=== PATIENT | female | born 1975 | race Caucasian/White ===

== ENCOUNTER 2017-03-18 08:23 | Day surgery (SDC) | payer OTHER ==
[~2017-03-18] VITALS: Ht 165.1 cm; Wt 95.2 kg
--- OUTSIDE RECORDS SUMMARY | 2017-03-18 08:27 | XMS REPORT | Referral Summary ---
Author Organization Unknown Address Unknown Phone Unavailable Care Team Providers Care Economic Specialist Name Role Phone Kamlesh Andrade Primary Care Physician [phone] Encounter [facility] [id number] Date(s): 01/18/15 - 01/18/15 [address] [facility] [address] [place] [id number] Discharge Diagnosis: Acute bronchitis Discharge Diagnosis: Influenza Discharge Disposition: Home or Self Care Attending Physician: Curly Andrade MD Admitting Physician: Curly Andrade MD Vital Signs Most recent to 1 oldest [Reference Range]: Temperature Tympanic 38.4 degC [36.6-38.1 degC] *HI* (01/18/15 2:52 PM) Peripheral Pulse 76 bpm Rate [60-100 bpm] (01/18/15 2:52 PM) Blood Pressure 116/80 mmHg [90-140/60-90 mmHg] (01/18/15 2:52 PM) Problem List Condition Effective Dates Status Health Status Informant Acute Active bronchitis(Confirmed ) Influenza(Confirmed) Active Allergies, Adverse Reactions, Alerts No Known Medication Allergies Medications Tamiflu 75 mg oral capsule 1 caps, Oral, BID, X 5 days, # 10 caps, 0 Refill(s), Pharmacy: [facility] #[id number], 1 caps Oral BID,x5 days Start Date: 01/18/15 Stop Date: 01/23/15 Status: Ordered Results No data available for this section Immunizations No data available for this section Procedures No data available for this section Social History Social History Type Response Smoking Status Never smoker Assessment and Plan Extracted from: Title: Ambulatory Patient Education Author: Curly Andrade MD Date: 01/18 Family Medicine Influenza, Adult Influenza ("the flu") is a viral infection of the respiratory tract. It occurs more often in winter months because people spend more time in close contact with one another. Influenza can make you feel very sick. Influenza easily spreads from person to person (contagious ). CAUSES Influenza is caused by a virus that infects the respiratory tract. You can catch the virus by breathing in droplets from an infected person's cough or sneeze. You can also catch the virus by touching something that was recently contaminated with the virus and then touching your mouth, nose, or eyes. SYMPTOMS Symptoms typically last 4 to 10 days and may include: Fever. Chills. Headache, body aches, and muscle aches. Sore throat. Chest discomfort and cough. Poor appetite. Weakness or feeling tired. Dizziness. Nausea or vomiting. DIAGNOSIS Diagnosis of influenza is often made based on your history and a physical exam. A nose or throat swab test can be done to confirm the diagnosis. RISKS AND COMPLICATIONS You may be at risk for a more severe case of influenza if you smoke cigarettes, have diabetes, have chronic heart disease (such as heart failure) or lung disease (such as asthma), or if you have a weakened immune system. Elderly people and women are also at risk for more serious infections. The most common complication of influenza is a lung infection (pneumonia ). Sometimes, this complication can require emergency medical care and may be life- threatening. PREVENTION An annual influenza vaccination (flu shot) is the best way to avoid getting influenza. An annual flu shot is now routinely recommended for all adults in the [place] TREATMENT In mild cases, influenza goes away on its own. Treatment is directed at relieving symptoms. For more severe cases, your caregiver may prescribe antiviral medicines to shorten the sickness. Antibiotic medicines are not effective, because the infection is caused by a virus, not by bacteria. HOME CARE INSTRUCTIONS Only take [id number] or prescription medicines for pain, discomfort, or fever as directed by your caregiver. Use a cool mist humidifier to make breathing easier. Get plenty of rest until your temperature returns to normal. This usually takes 3 to 4 days. Drink enough fluids to keep your urine clear or pale yellow. Cover your mouth and nose when coughing or sneezing, and wash your hands well to avoid spreading the virus. Stay home from work or school until your fever has been gone for at least 1 full day. SEEK MEDICAL CARE IF: You have chest pain or a deep cough that worsens or produces more mucus. You have nausea, vomiting, or diarrhea. SEEK IMMEDIATE MEDICAL CARE IF: You have difficulty breathing, shortness of breath, or your skin or nails turn bluish. You have severe neck pain or stiffness. You have a severe headache, facial pain, or earache. You have a worsening or recurring fever. You have nausea or vomiting that cannot be controlled. MAKE SURE YOU: Understand these instructions. Will watch your condition. Will get help right away if you are not doing well or get worse. Document Released: 10/18/2001 Document Revised: 04/21/2013 Document Reviewed: [facility] Patient Information 2014 [employer] [facility]. No follow up information was provided. Extracted from: Title: Influenza Author: Curly Andrade MD Date: 01/18/15 Impression and Plan Diagnosis Influenza (ICD9 487.1, Discharge, Medical). Acute bronchitis (ICD9 466.0, Discharge, Medical). Plan: Rest at home this week. Take your tamiflu twice a day for 5 days. Followup as needed. . Orders Orders (Selected) Outpatient Orders Ordered Office Visit Level 4 Est 82295: Prescriptions Prescribed Tamiflu 75 mg oral capsule: 1 caps, Oral, BID, 10 caps. Dx/Order Association Plan: Diagnosis: Acute bronchitis Comment: Ordered: Office Visit Level 4 Est 21399; 01/18/15 15:26:00 CDT, Influenza | Acute bronchitis Diagnosis: Influenza Comment: Ordered: Office Visit Level 4 Est 01541; 01/18/15 15:26:00 CDT, Influenza | Acute bronchitis Additional Orders: Comment: Ordered: Tamiflu 75 mg oral capsule,1 caps, Oral, BID, X 5 days, # 10 caps, 0 Refill(s), Pharmacy: [facility] #[id number], 1 caps Oral BID,x5 days End of Orders .
--- NOTE | 2017-03-18 08:32 | ERPDOC ---
Departure Disposition Decision Date: March 18, 2017 Disposition Decision Time: 08:42 Disposition: 02 TO [facility] Impression Impression Impression: Primary Impression: Food impaction of esophagus Encounter type: initial encounter Qualified Codes: T18.128A - Food in esophagus causing other injury, initial encounter Additional Impression: Esophageal stricture Severity: Moderate Condition: Stable Seen By: Physician only Problems/Meds/Labs Reviewed?: Yes Medications reviewed and manag: Yes Follow up care ordered?: Yes Mental Status: Alert, Oriented HPI - General Medical General Stated Complaint: THROAT CLOSING OFF/CHICKEN LODGED Time Seen by Provider: 08:32 Source: patient Exam Limitations: no limitations HPI - General Medical Initial Comments Patient is a 41-year-old female, does have a history of 6 esophageal strictures starting at the age of 11 diagnosed in her 20s she's had 3 dilatations in the past with biopsies, last one was greater than 6 years ago. Patient presents the ER for evaluation of food caught in throat. Patient was eating some chicken last night believes the food got stuck at that time. Patient has been uncomfortable all night, does feel that it partially passed about 2:30 this morning, however continuing to have problems with secretions and difficulty swallowing even water. Patient did call her primary medical doctor's office recommended she come to the ER for evaluation. Allergies: Coded Allergies: No Known Allergies (Unverified , 03/18/17) Past History Past Medical History Respiratory: asthma Social History Smoking Status: Current every day smoker Substance Use Type: does not use Alcohol Intake: none Review of Systems Constitutional Constitutional: DENIES: chills, dizziness, fever, weakness Eyes Vision: DENIES: double vision, loss of visual hewitt ENMT Sinuses: DENIES: congestion, rhinorrhea Mouth/Throat: painful swallowing, DENIES: scratchy throat, sore throat Cardiovascular Cardiac: DENIES: chest pain, dyspnea on exertion Pulmonary Respiratory: DENIES: cough, dyspnea, sputum, tachypnea GI Upper Abdomen: dysphagia, DENIES: nausea, pain, vomiting General: DENIES: frequency, urgency Musculoskeletal General: DENIES: cramps, pain, weakness Integumentary Skin: DENIES: color change, itching, rash Neurological General: DENIES: headache, numbness, syncope, weakness Endocrine Endocrine: DENIES: heat/cold intolerance Hematologic/Lymphatic Hematologic/Lymphatic: DENIES: anemia Physical Exam General General Nourishment: well nourished, well developed General Body Habitus: well groomed Vitals and Pain First Documented Vital Signs Date Time Temp Pulse Resp B/P Pulse Ox O2 Delivery O2 Flow Rate FiO2 03/18/17 08:25 98.0 70 14 155/80 97 Room Air Weight: Kilograms: Height (feet): Height (inches): Triage Pain Scale: RN VS reviewed by Provider: Yes Eyes (brief) Eyes Brief: found: EOMI ENMT (brief) ENMT Brief: FOUND: mucosa moist, normal dentition, NOT FOUND: nasal erythema, pharnyx erythema, tonsillar deviation Neck (brief) Neck: NOT FOUND: adenopathy, spasm, tenderness Respiratory (brief) Respiratory: FOUND: clear all hewitt, equal bilaterally, NOT FOUND: rales, wheezes Cardiovascular (brief) Cardiac: FOUND: regular rate, regular rhythm Capillary Refill: <2 sec Abdomen (brief) Abdominal Brief: FOUND: bowel normo active x4, soft, NOT FOUND: distended, tender Lymphatic (brief) Lymphatic Brief: NOT FOUND: adenopathy Musculoskeletal (brief) Musculoskeletal Brief: NOT FOUND: spasm, tenderness Integumentary (brief) Integumentary Brief: FOUND: dry, pink, rash (patient has a peeling sunburn on her upper chest), warm Neurologic (brief) Neurological Brief: FOUND: CN w/o gross def to obs, motor-no gross deficits, sensory-no gross deficits Psychiatric (brief) Psychiatric Brief: FOUND: alert, oriented Differential Diagnoses Considering: Other (food impaction, esophageal stricture) Progress Results/Orders Orders Procedure Category Date Status Time Iv Lock (Ed Only) EDM 03/18/17 Transmitted 08:37 LAB 03/18/17 Logged Qualitative, Urine 08:41 Place In Facility: ED ADM 03/18/17 Transmitted 08:43 Progress Progress Discuss case with Dr. Noel, given patient's past medical history and signs and symptoms will admit to surgical outpatient for EGD BERYL PARHAM MD March 18, 2017 08:32
--- NOTE | 2017-03-18 08:32 | NUR ---
PROVIDER DR. PARHAM IN ROOM WITH PT.
--- NOTE | 2017-03-18 08:40 | NUR ---
WATER RESULTS PT ATTEMPTED TO SIP WATER, PT STATES IT IS "STUCK" IN UPPER CHEST AND NOW CAUSING PAIN. PT FORCES HERSELF TO VOMIT TO RELIEVE PRESSURE FROM THE WATER. PROVIDER NOTIFIED.
[2017-03-18] MEDS ORDERED: advair diskus (09:07)
[2017-03-18] MEDS ORDERED: proair (09:07)
--- NOTE | 2017-03-18 09:40 | NUR ---
PROVIDER/GUILLERMO LI IN WITH PT AT THIS TIME.
--- NOTE | 2017-03-18 09:45 | NUR ---
REPORT REPORT CALLED TO [place] RAIN.
--- NOTE | 2017-03-18 10:05 | NUR ---
DEPART ED/SURGICAL SURGICAL STAFF TOOK PT OUT OF THE ED PER WHEELCHAIR AT THIS TIME.
[2017-03-18 10:20] VITALS: BP 137/88; PULSE 72; RESP 18; TEMP 98.2; O2SAT 97
[2017-03-18 10:30] VITALS: Ht 165.1 cm; Wt 95.2 kg
[2017-03-18] MEDS ORDERED: LR 1,000 ML IV PRN (11:02)
--- NOTE | 2017-03-18 11:37 | HPF ---
FINDINGS Mrs. Colunga is a 41-year-old female whom I was asked to see through the emergency room today as a result of a suspected esophageal foreign body. Upon questioning Mrs. Colunga, she informs me that she has had problems with "swallowing" since the age of 11. Patient states that her first dilatation was performed at the age of 16. 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 Patient states she has underwent perhaps five EGD and dilatations from the age of 16 up to her current age. Patient states that recently she has been having more problems with swallowing and that things have been "getting stuck more frequently". Patient states that she has always however been able to drink water and "push it on through." Patient states that at about 8:30 last night she had eaten some chicken and knew that it had become "stuck". Patient states that she did try to drink some additional fluid to help "push it on through". This was to no avail. She has been having difficulty in swallowing her own saliva. The patient stated that she knew things were "stuck again" and she therefore presented to the emergency room for further evaluation this morning. The patient did not appear to be in acute distress. PAST MEDICAL HISTORY Chronic Illness/System disorders: 1. History for asthma. PAST SURGICAL HISTORY C-sections. MEDICATIONS None. ALLERGIES NO KNOWN DRUG ALLERGIES. SOCIAL HISTORY Patient denies tobacco use. She does drink alcohol socially. FAMILY HISTORY Both her mother and father are alive and overall doing well. States that her dad has a history for high cholesterol and atherosclerotic coronary artery disease. REVIEW OF SYSTEMS Review of systems undertaken with the patient is essentially negative except as stated above in Findings section as well as a prior history for asthma from a constitutional, HEENT, cardiac, respiratory, GI, , musculoskeletal, hematology/oncology, endocrine, psychiatric. PHYSICAL EXAMINATION GENERAL: Mrs. Colunga is a 41-year-old female who as stated above did not appear to be in acute distress. VITALS: Temperature 98.0. Pulse 70. Respirations 14. Blood pressure 150/80. SaO2 97% on room air. HEENT: Normocephalic. Pupils are equally round and react to light and accommodation. CHEST: Clear to auscultation bilaterally. HEART: Regular rate and rhythm. Normal S1, S2, without gallops, murmurs or clicks. ABDOMEN: Palpation of the abdomen reveals it to be soft and nontender. I do not appreciate any evidence for hepatosplenomegaly nor abnormal masses. EXTREMITIES: Without clubbing, cyanosis, or edema. NEURO: Cranial nerves II-XII grossly intact. Patient without focal, motor, or sensory deficits. LABORATORY/RADIOGRAPHIC EVALUATION The patient had a urine test that was negative. ASSESSMENT 41-year-old female with probable esophageal foreign body. Patient with personal history for esophageal strictures. PLAN Esophagogastroduodenoscopy with removal of foreign body with probable dilatation. I informed the patient that I would recommend that she undergo an EGD with removal of this suspected foreign body as well as a possible dilatation. I did discuss with the patient in detail what this would entail and its associated risks which included, but was not exclusive of, bleeding and/or perforation requiring surgery. Patient understood and wished to proceed as stated above. MTDD
[2017-03-18] MEDS ORDERED: LIDOCAINE VISCOUS 2% Oral Soln 15ml UD ONE (12:27)
[2017-03-18] MEDS ORDERED: SIMETHICONE 67 MG/ML ORAL DROPS ONE ×2 (12:27→12:48)
[2017-03-18] MEDS ORDERED: BENZOCAINE 20% Top. Anesth. SPRAY UD ONE (12:27)
--- NOTE | 2017-03-18 12:30 | ANESPREOP ---
Anesthesia Record Date and Time DATE: 03/18/17 TIME: 12:20 Proposed Surgical Procedure Allergies: Coded Allergies: No Known Allergies (Unverified , 03/18/17) Ht/Wt/BMI Height: 5 ' 5.00 " Weight: 95.200 kg BMI: 34.9 kg/m2 Vital Signs Date Time Temp Pulse Resp B/P Pulse Ox O2 Delivery O2 Flow Rate FiO2 03/18/17 10:20 98.2 72 18 137/88 97 Room Air Medications Inpatient Medications Current Medications Medications (Trade) Dose Ordered Sig/Clementina Start Time Stop Time Status Last Admin Dose Admin Lactated Ringer's (Lactated Ringers) 1,000 ml @ 0 mls/hr Q0M PRN 03/18/17 11:02 03/18/17 11:04 0 MLS/HR [advair diskus] , (Reported) Last Taken: on Unknown Date & Time [proair] , (Reported) Last Taken: on Unknown Date & Time Currently on Beta Torsten: No Medical/Surgical History Anesthesia PMH: Reports: Asthma (has not used meds in several years), Obesity, Denies: Anesthesia Reactions (NO AIRWAY ISSUES), , Sleep Apnea Smoking Status: Never smoker Has pt. smoked today?: No Use Chewing Tobacco?: No Second Hand Exposure: No Substance Use Type: does not use Substance last used: unknown Alcohol Intake: rarely Last Drink: unknown HX of Last Menstrual Period: 2 WEEKS AGO Past Surgical History Orthopedic Surgeries: Abdominal Surgeries: Genitourinary Surgeries: Cardiac Surgeries: Endocrine Surgeries: Reproductive Surgeries: Yes - X2 Neurological Surgeries: Ear Surgeries: Nose Surgeries: Throat Surgeries: Yes - esphageal stricture repair 3 or 4 times Other Surgeries: Yes - COLONOSCOPY Anesthesia Adverse Reactions: FOUND none Family Hx of Anesthesia Advers: none Hx of Motion Sickness: No Pertinent Findings Test 03/18/17 08:51 Urine Test Negative (NEGATIVE) EKG Rhythm: Sinus Rhythm Physical Exam Respiratory: Bilat breath sounds equal, Lungs clear Cardiovascular: FOUND Regular rate, rhythm, FOUND No murmur Airway Assessment Mallampati Score: II TMD: 2 Fingerbreadths Neck Extension: Fair Overall Assessment: No Airway Concerns ASA: 2 Plan Anesthesia Plan: MAC Discussion Discussed risks/options/alternatives of anesthesia and questions answered. Patient consents. Nursing pain assessment noted. Present: Parent Attestation Statement Prior to the delivery of any anesthetic medication, I examined the patient, developed the plan, obtained the patient's consent and discussed the risk and benefits of the procedure with the patient/guardian. CONCEPCION SANDERSON CRNA March 18, 2017 12:23
[2017-03-18] MEDS ORDERED: MIDAZOLAM 2mg/2ml INJECTION ONE ×2 (12:34→12:43)
[2017-03-18] MEDS ORDERED: FENTANYL 100mcg/2ml INJECTION ONE ×2 (12:36→12:44)
[2017-03-18] MEDS ORDERED: PROPOFOL 200mg 20 ML IV ONE (13:09)
[2017-03-18 13:14] VITALS: BP 116/61; PULSE 90; RESP 20; TEMP 97.9; O2SAT 96
[2017-03-18 13:25] VITALS: BP 117/65; PULSE 84; RESP 20; O2SAT 96
--- NOTE | 2017-03-18 13:26 | ANESPO ---
Post-Op Note Date 03/18/17 Time: 13:25 Status Pt Participated in Evaluation: Pt participated in person Vital Signs Date Time Temp Pulse Resp B/P Pulse Ox O2 Delivery O2 Flow Rate FiO2 03/18/17 13:14 97.9 90 20 116/61 96 Room Air Respiratory Function: Airway patent, Regular respirations Cardiovascular Function: Regular pulse Mental Status: Alert/oriented Pain Level Intensity: 5 Hydration: IV infusing Complications during Recovery None apparent Post-Anesthesia Notes pt. tk. well Follow-Up Instructions Instructions Per Surgeon Additional Information as of now none CONCEPCION SANDERSON CRNA March 18, 2017 13:26
[2017-03-18 13:40] VITALS: BP 110/59; PULSE 78; RESP 17; O2SAT 97
[2017-03-18] MEDS ORDERED: DIATRIZOATE MEGLUMINE/SOD. (66%/10%) 120ml SOLN ONE (13:44)
--- NOTE | 2017-03-18 13:48 | NUR ---
TRANSFER PT TAKEN FROM UNIT DOWN TO IMAGING, VIA WHEELCHAIR, BY X-RAY TAKE FOR BARIUM SWALLOW TEST. PT IN STABLE CONDITION.
--- NOTE | 2017-03-18 14:10 | NUR ---
TRANSFER CARE TRANSFERRED BACK TO SCU, FOLLOWING BARIUM SWALLOW TEST. PT DENIES PAIN/DISCOMFORT AT THIS TIME.
[2017-03-18 14:20] VITALS: BP 131/70; PULSE 67; RESP 15; O2SAT 98
[2017-03-18 14:35] VITALS: BP 127/73; PULSE 68; RESP 19; O2SAT 97
--- NOTE | 2017-03-18 15:00 | DI ---
Indication:ITS.REASON: strictures x2, r/o tear post EGD with Dilatation Procedure:ESOPHAGRAM ESOPHAGRAM: Technique:The patient swallowed dilute Gastrografin without difficulty. Fluoroscopic imaging was obtained in the upright LPO, supine AP, and right lateral positions. Findings:There is a short segment stricture in the distal esophagus that does not restrict the flow of contrast. There is a small sliding esophageal hiatal hernia. The remainder of the esophagus is negative. There is no extravasation of contrast to suggest a leak. Esophageal motility appears normal. The cricopharyngeus muscle relaxes completely. There is no Zenker's diverticulum. Impression: 1. Short segment stricture in the distal esophagus. 2. Small sliding esophageal hiatal hernia. 3. No extravasation of contrast to suggest a leak. These results were telephoned to Michael Mays APRN at the conclusion of this exam. Fluoroscopy dose: 73.69 mGy (Cumulative air kerma) Clint Chavez RPA/AIMEE performed this under my direct supervision. .
--- NOTE | 2017-03-18 20:58 | OPNOTEF ---
DATE OF SERVICE 03/18/2017 SURGEON Paul Noel MD PREOPERATIVE DIAGNOSES Probable esophageal foreign body, long-standing history for dysphagia, personal history for multiple esophageal strictures requiring dilatations in the past. POSTOPERATIVE DIAGNOSES Probable esophageal foreign body, long-standing history for dysphagia, personal history for multiple esophageal strictures requiring dilatations in the past. Endoscopic findings consistent with eosinophilic esophagitis with marked narrowing of mid esophagus and distal esophagus. PROCEDURE Esophagogastroduodenoscopy with biopsies from mid and distal esophagus via cold biopsy technique, sequential balloon dilatations in mid and distal esophagus to 36-[place]. ANESTHESIA TIVA/local. BRIEF HISTORY/INDICATIONS Mrs. Colunga is a 41-year-old female who earlier this morning presented to our emergency room as a result of inability to swallow her own saliva. The patient was eating chicken last night and noted that it felt as if it became stuck within her mid esophagus. The patient does have a long-standing history for dysphagia. In fact, her first endoscopic procedure, she states, was performed at the age of 11. Patient states that over the last several months she has been having an increasingly more difficult time with swallowing and "food getting stuck." Patient states that typically she can drink water and "push the food on through." This was, however, to no avail following this event, as described above, last evening while eating chicken. As a result of the above indications it was recommended that the patient should undergo an EGD. For completeness please refer to notes included in the patient's chart. FINDINGS Upon upper endoscopy the esophagus was found to have "tracheal-like rings" suggestive of eosinophilic esophagitis. There was marked erythema and narrowing involving the mid and distal esophagus. Stomach and duodenum were found to be within normal limits. PROCEDURE After informed consent was obtained the patient was brought to the endoscopy suite and placed upon the table in left lateral decubitus position. The patient underwent initially conscious IV sedation followed by total intravenous anesthesia performed by the nurse llama farmer per my request. After the establishment of conscious sedation, formal time-out was completed. Next, an Olympus gastroscope was inserted into the oral hypopharynx directly into the esophagus. As stated above, the esophagus had "tracheal-like rings" suggestive of eosinophilic esophagitis. The esophageal lumen was narrowed but the scope was able to be advanced down to about 30 cm from the incisors. The esophagus was narrowed to the extent that the gastroscope could not be advanced past this location. It did appear that there was earlier an esophageal foreign body stuck at this location. Mucosa was quite erythematous and edematous in nature. Additionally, upon initially advanced the gastroscope into the esophagus, there was some fluid-like material within the esophagus consistent with that of a distal obstruction/narrowing. Next, the mid esophagus was sequentially dilated up to a 30-Fr. The scope was then able to be advanced past this location to the distal esophagus. At the GE junction there was significant narrowing also present to the extent that the scope could not be passed on into the stomach. Biopsies were obtained from 30 cm from the incisors via cold biopsy technique as well as from the distal esophagus and placed with separate containers. This was done via cold biopsy technique. Next, the distal esophagus at the GE junction was then sequentially dilated up to a 30-Fr. The scope was still unable to be advanced into the stomach. The distal esophagus was then dilated up to a 36-Fr. This did result in a small mucosal tear. There was no evidence for tania perforation. The scope was then advanced back up to the mid esophagus at 30 cm from the incisors where the esophagus was also dilated up to a 36-Fr without incident. The scope was now able to be advanced beyond the GE junction into the stomach. The scope was advanced through the pylorus, duodenal bulb and second portion of the duodenum. First and second portions of the duodenum were within normal limits. No evidence of duodenitis or ulcerations was noted. Scope was drawn back to the prepyloric region and antrum. Again, no mucosal abnormalities were noted. J-maneuver was then performed. Cardia and fundus were within normal limits. One could see a food bolus present within the fundal portion of the stomach. This likely was the food bolus the patient reported had been present. The scope was advanced back to the distal esophagus. Again, evidence for a mucosal tear was present but no tania perforation was noted. The gastroscope was continued to be slowly withdrawn. As stated above, the entire esophagus was edematous and erythematous in nature with the majority of the erythema and induration being noted at the GE junction as well as at 30 cm from the incisors within the mid esophagus. The gastroscope was continued to be slowly withdrawn until it was removed from the patient's oral hypopharynx. Will await biopsy results from today's EGD and proceed accordingly with further recommendations thereafter. MTDD
== END 2017-03-18 14:43 | disposition home or self-care (01) ==
LOC: ED 08:23 → SCU 14:43
PROVIDERS: ATTEND Surgery
DX: K22.10 Ulcer of esophagus without bleeding (principal); K22.2 Esophageal obstruction; T18.128A Food in esophagus causing other injury, initial encounter; X58.XXXA Exposure to other specified factors, initial encounter; Y93.89 Activity, other specified; Y92.9 Unspecified place or not applicable; Y99.8 Other external cause status
CPT/HCPCS: 43239; 43249; 74220; 81025; 99284; J2250; J2704; J3010; J7120; Q9963